=== PATIENT | female | born 1980 | race Caucasian/White ===

== ENCOUNTER 2021-02-08 01:11 | Emergency (ER) | payer BC ==
[~2021-02-08] VITALS: Ht 160 cm; Wt 80.3 kg
[2021-02-08 01:20] VITALS: BP_SYST 134
--- NOTE | 2021-02-08 01:35 | NUR ---
Patient to ER bed 2 to gown for evaluation. Side rails up. Report given to ANGEL LUIS WELSH.
--- NOTE | 2021-02-08 01:36 | NUR ---
Came in ER ambulatory from home this 41 year old female, AAOX4, breathing spontaneously at room air, not in distress noted. With chief complaints of headache, left upper limb numbness and abdominal cramps for 1-2 days, worsened tonight. History of Rheumatoid Arthritis, no surgical history. Vital signs stable
--- NOTE | 2021-02-08 01:48 | NUR ---
Seen and examined by Dr. Hollingsworth, ER Attending
[2021-02-08] MEDS ORDERED: IBUPROFEN 800 MG TABLET PO ONE (02:00)
--- NOTE | 2021-02-08 02:03 | NUR ---
Medication given as ordered, health teaching provided and verbalized understanding
[2021-02-08 02:16] VITALS: BP_SYST 122
--- NOTE | 2021-02-08 02:16 | NUR ---
Patient given written and verbal discharge instructions and verbalizes understanding. ER MD discussed with patient the results and treatment provided. Patient in stable condition. ID arm band removed. No Rx of given. Patient educated to follow up with PMD. Pain Scale 0/10. Opportunity for questions provided and answered.
== END 2021-02-08 02:16 | disposition home or self-care (01) ==
LOC: SED 01:11
DX: R51.9 Headache, unspecified (principal); R00.2 Palpitations
CPT/HCPCS: 81025; 93005; 99283

== ENCOUNTER 2021-04-11 14:13 | Emergency (ER) | payer BC ==
[~2021-04-11] VITALS: Ht 160 cm; Wt 68.0 kg
[2021-04-11 14:29] VITALS: BP_SYST 131
[2021-04-11] MEDS ORDERED: MORPHINE 4 MG INJ. 4 MG/ML VIAL IVP ONE (14:45)
[2021-04-11] MEDS ORDERED: NACL 0.9% 1,000 ML IV ONE (14:45)
[2021-04-11] MEDS ORDERED: ONDANSETRON HCL 4 MG/2 ML VIAL IVP ONE (14:45)
[2021-04-11 15:35] LABS: BASOPHILS % (AUTO) 0.2 % (0.0-2.0); EOSINOPHILS % (AUTO) 0.4 % (0.0-4.0); HEMATOCRIT 43.9 % (36-48); HEMOGLOBIN 15.2 g/dL (12.0-16.0); LYMPHOCYTES # (AUTO) 2.5 K/uL (1.0-5.5); LYMPHOCYTES % (AUTO) 22.8 % (20.5-51.5); MEAN CORPUSCULAR HEMOGLOBIN 29 pg (27-31); MEAN CORPUSCULAR HGB CONC 35 % (32-36); MEAN CORPUSCULAR VOLUME 85 fL (79.0-98.0); MONOCYTES # (AUTO) 0.5 K/uL (0.0-1.0); MONOCYTES % (AUTO) 4.5 % (1.7-9.3); NEUTROPHILS # (AUTO) 7.8 K/uL (1.8-7.7); NEUTROPHILS % (AUTO) 72.1 % (40.0-70.0); PLATELET COUNT (AUTO) 354 K/uL (130-430); RED BLOOD CELL COUNT(AUTO) 5.19 MIL/uL (4.2-6.2); RED CELL DISTRIBUTION WIDTH 14.1 % (9.0-15.0); WHITE BLOOD COUNT (AUTO) 10.8 K/uL (4.8-10.8)
[2021-04-11 15:45] LABS: CREATININE 0.75 mg/dL (0.55-1.30); POTASSIUM 3.4 mmol/L (3.5-5.1)
[2021-04-11 15:58] LABS: ALBUMIN 4.7 g/dL (3.4-4.8)
[2021-04-11 16:05] LABS: BILIRUBIN,URINE NEGATIVE (NEGATIVE); BLOOD, URINE 1+ (NEGATIVE); COLOR,URINE YELLOW (YELLOW); GLUCOSE,URINE NEGATIVE (NEGATIVE); KETONES,URINE 3+ (NEGATIVE); LEUKOCYTE ESTERASE ,URINE NEGATIVE (NEGATIVE); NITRITE, URINE NEGATIVE (NEGATIVE); PH,URINE 5.5 (5.0-8.0); PROTEIN URINE NEGATIVE (NEGATIVE); UROBILINOGEN,URINE 0.2 (0.2-1.0)
[2021-04-11 16:14] LABS: CLARITY/URINE SLIGHTLY HAZY (CLEAR)
[2021-04-11 17:08] LABS: BACTERIA,URINE FEW /HPF (None Seen); CALCIUM OXALATE CRYSTALS,UR 0-10 /HPF (None Seen); WBC,URINE 0-3 /HPF (0-3)
[2021-04-11] MEDS ORDERED: FAMO40TA71 PO (17:28)
[2021-04-11 18:02] VITALS: BP_SYST 131
== END 2021-04-11 18:02 | disposition home or self-care (01) ==
LOC: SED 14:13
DX: K29.70 Gastritis, unspecified, without bleeding (principal); Z88.8 Allergy status to other drugs, medicaments and biological substances; Z79.899 Other long term (current) drug therapy
CPT/HCPCS: 36415; 76700; 80053; 81000; 82150; 83690; 85025; 96360; 99284; J7030; J2270; J2405